=== PATIENT | male | born 1960 | race Caucasian/White ===

== ENCOUNTER 2017-12-23 12:07 | Observation (INO) | payer SELFPAY ==
[~2017-12-23] VITALS: Ht 172.7 cm; Wt 100.0 kg
[2017-12-23] VITALS (7 sets, daily range): BP systolic 97–154; BP diastolic 66–81; PULSE 69–85; RESP 18–24; TEMP 97.9–98.2; O2SAT 90–97
[2017-12-23] MEDS ORDERED: MOME16.7 INH (12:28)
[2017-12-23] MEDS ORDERED: VENTAER INH (12:28)
[2017-12-23] MEDS ORDERED: PRED20 PO (12:28)
[2017-12-23] MEDS ORDERED: methylPREDNISolone SOD SUCC 125 MG/2 ML VIAL IV PUSH ONE (12:30)
[2017-12-23] MEDS ORDERED: SODIUM CHLORIDE 0.9% FLUSH 10 ML FLUSH IVF PRN (12:30)
[2017-12-23] MEDS ORDERED: RESP: ALBUTEROL 2.5 MG/IPRATROPIUM 0.5 MG NEB (SCH) INH ONE (12:30)
[2017-12-23] MEDS: RESP: ALBUTEROL 2.5 MG/3 ML NEB (SCH) INH (12:35)
--- NOTE | 2017-12-23 12:38 | PD ---
HPI Chief Complaint: Chest Pain Time Seen by Provider: 12:24 Travel History International Travel<30 days: No Contact w/Intl Traveler<30days: No History of Present Illness HPI 57-year-old male with a history of "asthma", presents here today with complaints of chest tightness and shortness of breath. Patient states he has had this now for more than a week. He denies any fevers, chills. He does report cough with very little phlegm. He states he was seen by his primary doctor and told he had asthma. He was given a steroid inhaler as well as albuterol inhaler. He was also given prednisone taper. PFSH Past Medical History Asthma: Yes Diminished Hearing: No Past Surgical History Abdominal Surgery: Yes (HERNIA X2) Other Surgery: Yes (BACK SURGERY ) Social History Alcohol Use: Yes (RARE ) Tobacco Use: No Substance Use: No Allergies-Medications (Allergen,Severity, Reaction): Coded Allergies: penicillin G (Verified Allergy, Severe, Anaphylaxis, 12/23/17) Reported Meds & Prescriptions Reported Meds & Active Scripts Active Reported Ventolin Hfa 18 GM Inh (Albuterol Sulfate) 90 Mcg/Act Aer 2 Puff INH Q4-6H PRN Asmanex Hfa 13 GM Inh (Mometasone 13 GM Inh) 100 Mcg/Act Inh 2 Puff INH BID Prednisone 20 Mg Tab 20 Mg PO DAILY Review of Systems Except as stated in HPI: all other systems reviewed are Neg General / Constitutional: No: Fever HENT: No: Headaches, Vertigo, Neck Pain Cardiovascular: Positive: Chest Pain or Discomfort, No: Palpitations (Tightness ) Respiratory: Positive: Cough, Shortness of Breath, Wheezing Gastrointestinal: No: Nausea, Vomiting, Abdominal Pain Genitourinary: No: Dysuria, Decreased Urinary Output Musculoskeletal: No: Weakness, Pain Neurologic: No: Weakness, Dizziness, Headache Psychiatric: No: Substance Abuse Physical Exam Narrative GENERAL: Well-developed well-nourished male in moderate respiratory distress. SKIN: Focused skin assessment warm/dry. HEAD: Atraumatic. Normocephalic. EYES: Pupils equal and round. No scleral icterus. No injection or drainage. ENT: No nasal bleeding or discharge. Mucous membranes pink and moist. NECK: Trachea midline. Supple. CARDIOVASCULAR: Regular rate and rhythm. No murmur appreciated. RESPIRATORY: Decreased breath sounds in all 4 lung sarabia. Minimal wheezing secondary to the minimal movement of air. GASTROINTESTINAL: Abdomen soft, non-tender, nondistended. Hepatic and splenic margins not palpable. MUSCULOSKELETAL: No obvious deformities. No clubbing. No cyanosis. No edema. NEUROLOGICAL: Awake and alert. No obvious cranial nerve deficits. Motor grossly within normal limits. Normal speech. Data Data Last Documented VS Vital Signs Date Time Temp Pulse Resp B/P (MAP) Pulse Ox O2 Delivery O2 Flow Rate FiO2 12/23/17 12:22 80 24 136/81 (99) 92 Room Air 12/23/17 12:09 98.2 Orders Orders Electrocardiogram (12/23/17 ) Complete Blood Count With Diff (12/23/17 12:24) Comprehensive Metabolic Panel (12/23/17 12:24) Ckmb (Isoenzyme) Profile (12/23/17 12:24) Troponin I (12/23/17 12:24) Arterial Blood Gas (Abg) (12/23/17 12:24) Iv Access Insert/Monitor (12/23/17 12:24) Electrocardiogram (12/23/17 12:24) Ecg Monitoring (12/23/17 12:24) Oximetry (12/23/17 12:24) Oxygen Administration (12/23/17 12:24) Chest, Single Ap (12/23/17 12:24) Sodium Chloride 0.9% Flush (Ns Flush) (12/23/17 12:30) Methylprednisolone So Succ Inj (Solumedr (12/23/17 12:30) Albuterol-Ipratropium Neb (Duoneb Neb) (12/23/17 12:30) Albuterol Neb (Albuterol Neb) (12/23/17 12:30) Labs Laboratory Tests Test 12/23/17 12:18 Umesh Rizo MD Dec 23, 2017 12:37
--- NOTE | 2017-12-23 13:12 | RADRPT ---
EXAM DATE/TIME: 12/23/2017 12:31 [facility] COMPARISON: No previous studies available for comparison. INDICATIONS : Shortness of breath with chest pains. MEDICAL HISTORY : Myocardial infarction. SURGICAL HISTORY : None. ENCOUNTER: Initial ACUITY: 1 day PAIN SCORE: 6/10 LOCATION: Bilateral chest FINDINGS: A single view of the chest demonstrates the lungs to be symmetrically aerated without evidence of mas s, infiltrate or effusion. The cardiomediastinal contours are unremarkable. Osseous structures are intact. CONCLUSION: No acute disease. Jayant Katz MD on December 23, 2017 at 13:08 Board Certified Radiologist. This report was verified electronically.
[2017-12-23 13:21] LABS: BASOPHIL # 0.1 TH/MM3 (0-0.2); BASOPHIL % 0.9 % (0.0-2.0); EOSINOPHIL # 0.1 TH/MM3 (0-0.4); EOSINOPHIL % 1.5 % (0.0-4.0); HEMATOCRIT 44.6 % (39.0-51.0); HEMOGLOBIN 15.5 GM/DL (13.0-17.0); LYMPH % 33.5 % (9.0-44.0); MEAN CELL VOLUME 87.5 FL (80.0-100.0); MEAN CORPUSCULAR HEMOGLOBIN 30.3 PG (27.0-34.0); MEAN CORPUSCULAR HGB CONC 34.7 % (32.0-36.0); MEAN PLATELET VOLUME 7.8 FL (7.0-11.0); MONO % 8.6 % (0.0-8.0); MONOCYTE # 0.8 TH/MM3 (0-0.9); NEUT % 55.5 % (16.0-70.0); PLATELET COUNT 266 TH/MM3 (150-450); WHITE BLOOD COUNT 8.9 TH/MM3 (4.0-11.0)
[2017-12-23 13:42] LABS: ALBUMIN 4.1 GM/DL (3.4-5.0); ALT (GPT) 20 U/L (12-78); AST (GOT) 15 U/L (15-37); BICARBONATE 32.5 MEQ/L (21.0-32.0); BLOOD UREA NITROGEN 15 MG/DL (7-18); CALCIUM 8.7 MG/DL (8.5-10.1); CHLORIDE 102 MEQ/L (98-107); CREATININE 1.31 MG/DL (0.60-1.30); GLOMERULAR FILTRATION RATE 56 ML/MIN (>89); GLUCOSE,RANDOM 99 MG/DL (74-106); SODIUM (NA) 140 MEQ/L (136-145)
[2017-12-23 13:46] LABS: ALKALINE PHOSPHATASE 117 U/L (45-117); TOTAL BILIRUBIN ADULT 0.7 MG/DL (0.2-1.0); TOTAL PROTEIN 7.6 GM/DL (6.4-8.2); TROPONIN I LESS THAN 0.02 NG/ML (0.02-0.05)
[2017-12-23] MEDS ORDERED: RESP: ALBUTEROL 2.5 MG/3 ML NEB (PRN) INH (14:30)
[2017-12-23] MEDS ORDERED: SODIUM CHLORIDE 0.9% FLUSH 10 ML FLUSH IV FLUSH PRN (14:30)
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
[2017-12-23] MEDS ORDERED: LORATADINE 10 MG TAB PO ONE (15:00)
[2017-12-23] MEDS ORDERED: SODIUM CHLOR 0.9% 1000 ML INJ 1,000 ML IV SCH (16:30)
[2017-12-23] MEDS: HEPARIN SODIUM - SQ 10,000 UNITS/ML VIAL SQ SCH (16:39)
[2017-12-23] MEDS: methylPREDNISolone SOD SUCC 125 MG/2 ML VIAL IV PUSH SCH (16:43)
[2017-12-23] MEDS ORDERED: IOHEXOL 350 MG/ML 10 ML VIAL (for RAD DIAG) IVCONTRAST ONE (16:45)
--- NOTE | 2017-12-23 16:53 | RADRPT ---
EXAM DATE/TIME: 12/23/2017 16:21 [facility] COMPARISON: CHEST SINGLE AP, December 23, 2017, 12:31. INDICATIONS : Chest tightness and shortness of breath. IV CONTRAST: 73 cc Omnipaque 350 (iohexol) IV RADIATION DOSE: 14.53 CTDIvol (mGy) MEDICAL HISTORY : None SURGICAL HISTORY : Back surgery ENCOUNTER: Initial ACUITY: 1 day PAIN SCALE: 4/10 LOCATION: Bilateral chest TECHNIQUE: Volumetric scanning of the chest was performed using a pulmonary embolism protocol MIP images were re constructed. Using automated exposure control and adjustment of the mA and/or kV according to patien t size, radiation dose was kept as low as reasonably achievable to obtain optimal diagnostic quality images. DICOM format image data is available electronically for review and comparison. Follow-up recommendations for detected pulmonary nodules are based at a minimum on nodule size and pa tient risk factors according to Fleischner Society Guidelines. FINDINGS: PULMONARY ARTERIES: No filling defects are seen in the pulmonary arteries through the segmental level. LUNGS: There is no consolidation or pneumothorax . No concerning pulmonary nodule is visualized. PLEURAE: There is no pleural thickening or pleural effusion. MEDIASTINUM: There is good visualization of the great vessels of the middle mediastinum. No evidence of mediastin al or hilar adenopathy/mass. MUSCULOSKELETAL: Within normal limits for patient age. MISCELLANEOUS: The visualized upper abdominal organs demonstrate no acute abnormality. CONCLUSION: No evidence of pulmonary emboli. The lungs are clear. Jayant Ktaz MD on December 23, 2017 at 16:49 Board Certified Radiologist. This report was verified electronically.
[2017-12-23] MEDS: RESP: ALBUTEROL 2.5 MG/IPRATROPIUM 0.5 MG NEB (SCH) INH ×2 (16:54→20:50)
--- NOTE | 2017-12-23 20:39 | MB ---
cc: London Callahan MD DATE: 12/23/2017 REASON FOR CONSULTATION: Exacerbation of bronchial asthma. HISTORY OF PRESENT ILLNESS: The patient is a 57-year-old male with known history of bronchial asthma in the past. The patient is admitted with increasing shortness of breath, wheezing for over a week. No fever, no chill, cough without expectoration. No hemoptysis. No TB. No industrial exposure. PAST MEDICAL HISTORY: That of bronchial asthma, acid reflux disease. He did have a T and A as a child. MEDICATIONS: Upon presentation included prednisone 20 mg a day, Asmanex and Ventolin. ALLERGIES: PENICILLIN. SOCIAL HISTORY: Does not smoke. Drinks alcohol on rare occasion, does not use drugs. FAMILY HISTORY: Noncontributory. SYSTEMS REVIEW: A 12 point review of systems as per HPI and past history, otherwise negative. PHYSICAL EXAMINATION: GENERAL: The patient is alert. VITAL SIGNS: Temperature 98, pulse ____, respiration 18, blood pressure 140/80. HEENT: Unremarkable. Eyes without icterus. NECK: Without adenopathy, thyroid enlargement. Central trachea. CHEST: No dullness to percussion. Clear to auscultation. CARDIAC: PMI not appreciated. S1, S2 audible. No murmur, no rub. ABDOMEN: Lax, bowel sounds audible. EXTREMITIES: No clubbing, cyanosis or edema. LABORATORY DATA: Arterial blood gas pH 7.37, pCO2 of 49, pO2 59 on room air. White count 8.9, hemoglobin 15, hematocrit 44, platelets 266,000. Sodium 140, potassium 4.0, BUN 15, creatinine 1.3. CT angiogram no PE. Clear lung sarabia. IMPRESSION: 1. Asthma exacerbation. 2. Hypoxic respiratory failure. PLAN: The patient will be given oxygen therapy as needed. Bronchodilator therapy, steroid therapy. Follow closely. As oxygenation improves one may discontinue oxygen therapy and change to oral medication. Baseline pulmonary function will be obtained. I do thank you for asking me to partake in Mr. Ricardo's care. London Callahan MD WWW/rt , 08:14 PM , 08:38 PM
[2017-12-23] MEDS: SODIUM CHLORIDE 0.9% FLUSH 10 ML FLUSH IV FLUSH SCH (21:00)
[2017-12-23] MEDS: BUDESONIDE-FORMOTEROL 160/4.5 MCG INHALER INH SCH (21:00)
[2017-12-24] VITALS (12 sets, daily range): BP systolic 13–116; BP diastolic 52–69; PULSE 55–94; RESP 16–20; TEMP 98–98.8; O2SAT 90–95
[2017-12-24] MEDS: MONTELUKAST SODIUM 10 MG TAB PO SCH ×2 (00:32→22:51)
[2017-12-24] MEDS: methylPREDNISolone SOD SUCC 125 MG/2 ML VIAL IV PUSH SCH ×5 (00:33→22:51)
[2017-12-24] MEDS: HEPARIN SODIUM - SQ 10,000 UNITS/ML VIAL SQ SCH ×2 (03:00→15:47)
[2017-12-24] MEDS: RESP: ALBUTEROL 2.5 MG/IPRATROPIUM 0.5 MG NEB (SCH) INH ×4 (03:24→20:51)
[2017-12-24] MEDS: AZITHROMYCIN 250 MG TAB PO SCH (09:02)
[2017-12-24] MEDS: SODIUM CHLORIDE 0.9% FLUSH 10 ML FLUSH IV FLUSH SCH ×2 (09:03→22:51)
[2017-12-24] MEDS: LORATADINE 10 MG TAB PO SCH (09:03)
[2017-12-24] MEDS: BUDESONIDE-FORMOTEROL 160/4.5 MCG INHALER INH SCH ×2 (11:00→21:00)
--- NOTE | 2017-12-24 13:59 | EKG ---
Date Performed: 12/23/2017 Time Performed: 12:33:14 PTAGE: 57 years EKG: Sinus rhythm WITH SHORT [place] INTERVAL BORDERLINE ECG NO PREVIOUS TRACING DOCTOR: Tadeo Graham Interpretating Date/Time 12/24/2017 13:57:33
--- NOTE | 2017-12-24 19:29 | HHI.PR ---
Subjective Remarks Patient says he is feeling a little better today. Patient reports burning in his 'windpipe' worse when he breathes, reports this is the goal chest pain he was reporting yesterday. Objective Vital Signs Date Time Temp Pulse Resp B/P (MAP) Pulse Ox O2 Delivery O2 Flow Rate FiO2 12/24/17 17:16 98.4 87 20 116/64 (81) 94 12/24/17 16:40 77 12/24/17 13:00 94 12/24/17 12:44 3.00 12/24/17 12:35 98.2 87 20 116/62 (80) 91 12/24/17 08:44 92 Nasal Cannula 2.00 12/24/17 08:16 98.8 58 20 91/52 (65) 90 12/24/17 08:15 55 12/24/17 02:57 98.0 73 16 114/69 (84) 95 12/24/17 00:09 98.6 76 20 110/68 (82) 93 12/23/17 22:10 98.1 85 20 104/66 (79) 93 Result Diagram: 12/23/17 1256 12/23/17 1256 Objective Remarks GENERAL: patient sitting up in bed. Appears comfortable SKIN: Warm and dry. HEAD: Normocephalic. EYES: No scleral icterus. No injection or drainage. NECK: Supple, trachea midline. No JVD . CARDIOVASCULAR: Regular rate and rhythm without murmurs, gallops, or rubs. RESPIRATORY: Breath sounds equal bilaterally. No accessory muscle use. GASTROINTESTINAL: Abdomen soft, non-tender, nondistended. MUSCULOSKELETAL: No cyanosis, or edema. BACK: Nontender without obvious deformity. No CVA tenderness. A/P Assessment and Plan 57yo male admitted with chest pain and dyspnea: //Acute hypoxic respiratory failure //Asthma/COPD in acute exacerbation -patient given IV Solumedrol, nebulizer treatments in the ED with improvement -Continue on IV Solumedrol 60mg IV q6h -Begin Singulair 10mg daily and Claritin 10mg daily -Symbicort 160/4.5 mcg BID -Azithromycin 500mg po daily -Scheduled Duonebs and Albuterol neb prn -Consult Pulmonology, appreciate recommendations -Consult COPD educator -supplemental oxygen to maintain O2 sats >92% Patient has failed home oxygen evaluation, going into the 80s on room air with ambulation. Continue current treatment assess for improvement //Chest pain, atypical -CXR shows no acute cardiopulmonary process, images reviewed by me -initial troponin neg, continue to trend EKGs/serial cardiac enzymes -continuous cardiac monitoring -obtain CTA r/o PE = CTA negative for PE. //SHYANNE on ?CKD -creatinine 1.31/GFR 56, no labs for comparison -avoid nephrotoxic agents -obtain UA -IVF -monitor renal indices = Recheck labs tomorrow. //DVT prophylaxis -Heparin sq Discharge Planning discharge likely tomorrow when oxygenation improves. Master Talbot MD Dec 24, 2017 19:29
[2017-12-25] VITALS (7 sets, daily range): BP systolic 104–123; BP diastolic 64–70; PULSE 72–88; RESP 16–20; TEMP 98.2–98.4; O2SAT 92–97
[2017-12-25] MEDS: HEPARIN SODIUM - SQ 10,000 UNITS/ML VIAL SQ SCH ×2 (03:00→15:00)
[2017-12-25] MEDS: RESP: ALBUTEROL 2.5 MG/IPRATROPIUM 0.5 MG NEB (SCH) INH ×4 (03:40→20:37)
[2017-12-25] MEDS: methylPREDNISolone SOD SUCC 125 MG/2 ML VIAL IV PUSH SCH ×4 (04:32→23:40)
[2017-12-25] MEDS: BUDESONIDE-FORMOTEROL 160/4.5 MCG INHALER INH SCH ×2 (09:00→21:00)
--- NOTE | 2017-12-25 09:54 | HHI.PR ---
Subjective Remarks Patient says he is feeling all right. Says that shortness of breath has improved, but airway irritation continues. Objective Vital Signs Date Time Temp Pulse Resp B/P (MAP) Pulse Ox O2 Delivery O2 Flow Rate FiO2 12/25/17 07:50 98.2 76 20 115/65 (82) 94 12/25/17 03:31 98.2 88 16 104/67 (79) 95 12/24/17 23:23 98.3 85 20 107/62 (77) 93 12/24/17 20:40 94 Nasal Cannula 4.00 12/24/17 19:55 98.4 88 20 13/68 (50) 93 12/24/17 17:16 98.4 87 20 116/64 (81) 94 12/24/17 16:40 77 12/24/17 13:00 94 12/24/17 12:44 3.00 12/24/17 12:35 98.2 87 20 116/62 (80) 91 I/O 12/24/17 12/24/17 12/24/17 12/25/17 12/25/17 12/25/17 07:00 15:00 23:00 07:00 15:00 23:00 # Voids 4 Result Diagram: 12/23/17 1256 12/23/17 1256 Objective Remarks GENERAL: patient sitting up in bed. Appears comfortable, aaox4 SKIN: Warm and dry. HEAD: Normocephalic. EYES: No scleral icterus. No injection or drainage. NECK: Supple, trachea midline. No JVD . CARDIOVASCULAR: Regular rate and rhythm without murmurs, gallops, or rubs. RESPIRATORY: Breath sounds equal bilaterally. No accessory muscle use. GASTROINTESTINAL: Abdomen soft, non-tender, nondistended. MUSCULOSKELETAL: No cyanosis, or edema. BACK: Nontender without obvious deformity. No CVA tenderness. A/P Assessment and Plan 57yo male admitted with chest pain and dyspnea: //Acute hypoxic respiratory failure //Asthma/COPD in acute exacerbation -patient given IV Solumedrol, nebulizer treatments in the ED with improvement -Continue on IV Solumedrol 60mg IV q6h -Begin Singulair 10mg daily and Claritin 10mg daily -Symbicort 160/4.5 mcg BID -Azithromycin 500mg po daily -Scheduled Duonebs and Albuterol neb prn -Consult Pulmonology, appreciate recommendations -Consult COPD educator -supplemental oxygen to maintain O2 sats >92% Patient has failed home oxygen evaluation, going into the 80s on room air with ambulation. Continue current treatment assess for improvement = 12/25. Patient reports that he has an old oxygen machine at home but is not sure if it works. Will recheck ABG. Patient may need oxygen at home. //Constipation. No bowel movements here. Seen on CT scan from admission. //Suspected GERD. Likely exacerbated by constipation. Likely causing asthma exacerbation. Start Protonix. //Chest pain, atypical -CXR shows no acute cardiopulmonary process, images reviewed by me -initial troponin neg, continue to trend EKGs/serial cardiac enzymes -continuous cardiac monitoring -obtain CTA r/o PE = CTA negative for PE. //SHYANNE on ?CKD -creatinine 1.31/GFR 56, no labs for comparison -avoid nephrotoxic agents -obtain UA -IVF -monitor renal indices = A.m. labs pending. //DVT prophylaxis -Heparin sq Discharge Planning discharge when oxygenation improves. self pay. Difficult discharge. Master Talbot MD Dec 25, 2017 09:54
[2017-12-25] MEDS ORDERED: OXYGENDME NAS.CANULA (09:57)
[2017-12-25] MEDS ORDERED: MAGNESIUM HYDROXIDE SUSP 30 ML CUP PO ONE (10:00)
[2017-12-25] MEDS ORDERED: PANTOPRAZOLE SOD 40 MG DELAYED RELEASE TAB PO ONE (10:00)
[2017-12-25] MEDS ORDERED: DOCUSATE SODIUM 50 MG/SENNA 8.6 MG TAB PO ONE (10:00)
[2017-12-25] MEDS: LORATADINE 10 MG TAB PO SCH (10:10)
[2017-12-25] MEDS: AZITHROMYCIN 250 MG TAB PO SCH (10:10)
[2017-12-25] MEDS: SODIUM CHLORIDE 0.9% FLUSH 10 ML FLUSH IV FLUSH SCH ×2 (10:11→23:40)
[2017-12-25 22:03] LABS: AUTOMATED NEUTROPHIL # 14.1 TH/MM3 (1.8-7.7); BASOPHIL % 0.1 % (0.0-2.0); HEMATOCRIT 41.8 % (39.0-51.0); HEMOGLOBIN 14.1 GM/DL (13.0-17.0); LYMPH % 5.7 % (9.0-44.0); LYMPHOCYTE # 0.9 TH/MM3 (1.0-4.8); MEAN CELL VOLUME 88.7 FL (80.0-100.0); MEAN CORPUSCULAR HGB CONC 33.8 % (32.0-36.0); MEAN PLATELET VOLUME 7.8 FL (7.0-11.0); MONO % 4.3 % (0.0-8.0); MONOCYTE # 0.7 TH/MM3 (0-0.9); NEUT % 89.9 % (16.0-70.0); PLATELET COUNT 254 TH/MM3 (150-450); RED BLOOD COUNT 4.71 MIL/MM3 (4.50-5.90); RED CELL DISTRIBUTION WIDTH 12.9 % (11.6-17.2); WHITE BLOOD COUNT 15.7 TH/MM3 (4.0-11.0)
[2017-12-25 22:30] LABS: ALBUMIN 3.6 GM/DL (3.4-5.0); BICARBONATE 27.9 MEQ/L (21.0-32.0); CALCIUM 8.8 MG/DL (8.5-10.1); CREATININE 1.24 MG/DL (0.60-1.30); MAGNESIUM 2.2 MG/DL (1.5-2.5); PHOSPHORUS 2.4 MG/DL (2.5-4.9)
[2017-12-25] MEDS: MONTELUKAST SODIUM 10 MG TAB PO SCH (23:40)
[2017-12-26] MEDS: HEPARIN SODIUM - SQ 10,000 UNITS/ML VIAL SQ SCH ×2 (03:00→15:00)
[2017-12-26] MEDS: RESP: ALBUTEROL 2.5 MG/IPRATROPIUM 0.5 MG NEB (SCH) INH ×4 (03:35→20:29)
[2017-12-26] MEDS: methylPREDNISolone SOD SUCC 125 MG/2 ML VIAL IV PUSH SCH ×4 (04:11→20:49)
[2017-12-26 07:48] VITALS: BP 108/81; PULSE 66; RESP 16; TEMP 98.6; O2SAT 95
[2017-12-26] MEDS: BUDESONIDE-FORMOTEROL 160/4.5 MCG INHALER INH SCH ×4 (09:00→21:00)
[2017-12-26] MEDS: AZITHROMYCIN 250 MG TAB PO SCH (09:30)
[2017-12-26] MEDS: PANTOPRAZOLE SOD 40 MG DELAYED RELEASE TAB PO SCH (09:30)
[2017-12-26] MEDS: LORATADINE 10 MG TAB PO SCH (09:30)
[2017-12-26] MEDS: SODIUM CHLORIDE 0.9% FLUSH 10 ML FLUSH IV FLUSH SCH ×2 (09:33→20:51)
[2017-12-26 10:01] VITALS: BP 124/74; PULSE 86; RESP 16; TEMP 98.2; O2SAT 90
[2017-12-26 11:18] VITALS: O2SAT 97
--- NOTE | 2017-12-26 11:56 | HHI.PR ---
Subjective Remarks Patient continues to feel short of breath. He does report "burning in airways" . He reports that this is made worse with albuterol. He also reports "burning in airways" with activity. Objective Vital Signs Date Time Temp Pulse Resp B/P (MAP) Pulse Ox O2 Delivery O2 Flow Rate FiO2 12/26/17 11:18 97 Nasal Cannula 3.00 12/26/17 11:08 2.00 12/26/17 10:01 98.2 86 16 124/74 (91) 90 12/26/17 07:48 98.6 66 16 108/81 (90) 95 12/25/17 20:43 72 18 111/70 (84) 96 12/25/17 20:42 97 Nasal Cannula 3.00 12/25/17 16:08 98.4 86 18 123/64 (83) 92 12/25/17 13:14 98.4 74 20 121/66 (84) 93 Result Diagram: 12/25/17214712/25/172147 Objective Remarks GENERAL: patient sitting up in bed. Appears comfortable, aaox4 SKIN: Warm and dry. HEAD: Normocephalic. EYES: No scleral icterus. No injection or drainage. NECK: Supple, trachea midline. No JVD . CARDIOVASCULAR: Regular rate and rhythm without murmurs, gallops, or rubs. RESPIRATORY: Breath sounds equal bilaterally. No accessory muscle use. GASTROINTESTINAL: Abdomen soft, non-tender, nondistended. MUSCULOSKELETAL: No cyanosis, or edema. BACK: Nontender without obvious deformity. No CVA tenderness. A/P Assessment and Plan 57yo male admitted with chest pain and dyspnea: //Acute hypoxic respiratory failure //Asthma/COPD in acute exacerbation -patient given IV Solumedrol, nebulizer treatments in the ED with improvement -Continue on IV Solumedrol 60mg IV q6h -Begin Singulair 10mg daily and Claritin 10mg daily -Symbicort 160/4.5 mcg BID -Azithromycin 500mg po daily -Scheduled Duonebs and Albuterol neb prn -Consult Pulmonology, appreciate recommendations -Consult COPD educator -supplemental oxygen to maintain O2 sats >92% Patient has failed home oxygen evaluation, going into the 80s on room air with ambulation. Continue current treatment assess for improvement = 12/25. Patient reports that he has an old oxygen machine at home but is not sure if it works. Will recheck ABG. Patient may need walk test. At home. = 4/2. Check oxygen walk test. //Atypical chest pain. = 4/2. Continues with burning in airways. Poor R-wave progression on EKG. check echocardiogram. Check BNP //Constipation. No bowel movements here. Seen on CT scan from admission. //Suspected GERD. Likely exacerbated by constipation. Likely causing asthma exacerbation. Start Protonix. //Chest pain, atypical -CXR shows no acute cardiopulmonary process, images reviewed by me -initial troponin neg, continue to trend EKGs/serial cardiac enzymes -continuous cardiac monitoring -obtain CTA r/o PE = CTA negative for PE. //SHYANNE on ?CKD -creatinine 1.31/GFR 56, no labs for comparison -avoid nephrotoxic agents -obtain UA -IVF -monitor renal indices = A.m. labs pending. //DVT prophylaxis -Heparin sq Discharge Planning discharge when oxygenation improves. self pay. Difficult discharge. Master Talbot MD Dec 26, 2017 11:56
[2017-12-26] MEDS ORDERED: MAGNESIUM HYDROXIDE SUSP 30 ML CUP PO ONE (12:00)
[2017-12-26] MEDS ORDERED: DOCUSATE SODIUM 50 MG/SENNA 8.6 MG TAB PO ONE (12:00)
[2017-12-26 15:03] VITALS: BP 117/77; PULSE 78; RESP 16; TEMP 98.3; O2SAT 91
[2017-12-26 20:27] VITALS: BP 112/79; PULSE 80; RESP 18; O2SAT 92
[2017-12-26 20:31] VITALS: O2SAT 92
[2017-12-26] MEDS: DOCUSATE SODIUM 50 MG/SENNA 8.6 MG TAB PO SCH (20:49)
[2017-12-26] MEDS: MONTELUKAST SODIUM 10 MG TAB PO SCH (20:49)
[2017-12-27] MEDS: methylPREDNISolone SOD SUCC 125 MG/2 ML VIAL IV PUSH SCH ×3 (03:00→09:25)
[2017-12-27] MEDS: HEPARIN SODIUM - SQ 10,000 UNITS/ML VIAL SQ SCH (03:00)
[2017-12-27 03:34] VITALS: BP 119/76; PULSE 70; RESP 18; O2SAT 93
[2017-12-27] MEDS: RESP: ALBUTEROL 2.5 MG/IPRATROPIUM 0.5 MG NEB (SCH) INH ×2 (03:34→12:04)
[2017-12-27 07:31] VITALS: BP 135/84; PULSE 65; RESP 20; TEMP 98.8; O2SAT 95
[2017-12-27] MEDS: LORATADINE 10 MG TAB PO SCH (09:25)
[2017-12-27] MEDS: DOCUSATE SODIUM 50 MG/SENNA 8.6 MG TAB PO SCH (09:25)
[2017-12-27] MEDS: SODIUM CHLORIDE 0.9% FLUSH 10 ML FLUSH IV FLUSH SCH (09:26)
[2017-12-27] MEDS: AZITHROMYCIN 250 MG TAB PO SCH (09:26)
[2017-12-27] MEDS: PANTOPRAZOLE SOD 40 MG DELAYED RELEASE TAB PO SCH (09:26)
[2017-12-27 12:01] VITALS: BP 115/76; PULSE 72; RESP 20; TEMP 98.7; O2SAT 92
[2017-12-27 12:04] VITALS: O2SAT 92
[2017-12-27] MEDS ORDERED: IPRA17I INH (14:29)
[2017-12-27] MEDS ORDERED: PRED10PA2 PO (14:29)
[2017-12-27] MEDS ORDERED: AZIT250T3 PO (14:29)
[2017-12-27] MEDS ORDERED: Budeson-Formot 160-4.5 Mcg Inh INH (14:29)
[2017-12-27] MEDS ORDERED: MONT10TA4 PO (14:29)
[2017-12-27] MEDS ORDERED: CLAR10TA7 PO (14:29)
--- NOTE | 2017-12-27 14:37 | HHI.PR ---
Subjective Remarks Patient seen this morning. He says that shortness of breath has improved. Still burning when he breathes. Subsequently, patient refuses CT coronary angiogram. Does not want to wait for echocardiogram results. Objective Vital Signs Date Time Temp Pulse Resp B/P (MAP) Pulse Ox O2 Delivery O2 Flow Rate FiO2 12/27/17 12:04 92 Nasal Cannula 4.00 12/27/17 12:01 98.7 72 20 115/76 (89) 92 12/27/17 07:31 98.8 65 20 135/84 (101) 95 12/27/17 03:34 70 18 119/76 (90) 93 12/26/17 20:31 92 21 12/26/17 20:27 80 18 112/79 (90) 92 12/26/17 15:03 98.3 78 16 117/77 (90) 91 Result Diagram: 12/25/17214712/25/172147 Objective Remarks GENERAL: patient sitting up in bed. Appears comfortable, aaox4. No change on exam. Breathing comfortably. SKIN: Warm and dry. HEAD: Normocephalic. EYES: No scleral icterus. No injection or drainage. NECK: Supple, trachea midline. No JVD . CARDIOVASCULAR: Regular rate and rhythm without murmurs, gallops, or rubs. RESPIRATORY: Breath sounds equal bilaterally. No accessory muscle use. GASTROINTESTINAL: Abdomen soft, non-tender, nondistended. MUSCULOSKELETAL: No cyanosis, or edema. BACK: Nontender without obvious deformity. No CVA tenderness. A/P Assessment and Plan 57yo male admitted with chest pain and dyspnea: //Acute hypoxic respiratory failure //Asthma/COPD in acute exacerbation -patient given IV Solumedrol, nebulizer treatments in the ED with improvement -Continue on IV Solumedrol 60mg IV q6h -Begin Singulair 10mg daily and Claritin 10mg daily -Symbicort 160/4.5 mcg BID -Azithromycin 500mg po daily -Scheduled Duonebs and Albuterol neb prn -Consult Pulmonology, appreciate recommendations -Consult COPD educator -supplemental oxygen to maintain O2 sats >92% Patient has failed home oxygen evaluation, going into the 80s on room air with ambulation. Continue current treatment assess for improvement = 12/25. Patient reports that he has an old oxygen machine at home but is not sure if it works. Will recheck ABG. Patient may need walk test. At home. = 4/2. Check oxygen walk test. = /. Discharge with oxygen prescription. //Atypical chest pain. = /2. Continues with burning in airways. Poor R-wave progression on EKG. check echocardiogram. Check BNP //Constipation. Resolved after laxatives //Suspected GERD. Likely exacerbated by constipation. Likely causing asthma exacerbation. Start Protonix. //Chest pain, atypical -CXR shows no acute cardiopulmonary process, images reviewed by me -initial troponin neg, continue to trend EKGs/serial cardiac enzymes -continuous cardiac monitoring -obtain CTA r/o PE = CTA negative for PE. = Patient refuses CT coronary angiogram. Patient does not want to wait for echocardiogram to result. //SHYANNE on ?CKD -creatinine 1.31/GFR 56, no labs for comparison -avoid nephrotoxic agents -obtain UA -IVF -monitor renal indices = Improved. //Leukocytosis 15. Secondary to IV steroids. //DVT prophylaxis -Heparin sq Discharge Planning Patient refuses CT coronary angiogram.. Is not wanting to wait for echo results. Discharge home with oxygen prescription. Follow-up primary care and pulmonology as outpatient. Master Talbot MD Dec 27, 2017 14:37
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
--- NOTE | 2017-12-27 18:11 | ECHRPT ---
Indication: HEART FAILURE CONCLUSIONS The left ventricular systolic function is low normal with an estimated ejection fraction in the rang e of 50- 55%. There is global left ventricular dysfunction. There is trace tricuspid valve regurgitation. BP: 117 / 77 HR: 78 Rhythm: Sinus MEASUREMENTS (Male / Female) Normal Values Technical Quality:Fair 2D ECHO LV Diastolic Diameter PLAX 4.6 cm 4.2 - 5.9 / 3.9 - 5.3 cm LV Systolic Diameter PLAX 3.7 cm IVS Diastolic Thickness 0.9 cm 0.6 - 1.0 / 0.6 - 0.9 cm LVPW Diastolic Thickness 0.9 cm 0.6 - 1.0 / 0.6 - 0.9 cm LV Relative Wall Thickness 0.4 RV Internal Dim ED PLAX 2.4 cm LVOT Diameter 2.3 cm Aortic Root Diameter 3.4 cm LA Systolic Diameter LX 2.7 cm 3.0 - 4.0 / 2.7 - 3.8 cm M-MODE AV Cusp Separation MM 2.1 cm DOPPLER AV Peak Velocity 97.9 cm/s AV Peak Gradient 3.8 mmHg AV Mean Gradient 2.0 mmHg AV Velocity Time Integral 17.2 cm LVOT Peak Velocity 66.2 cm/s LVOT Peak Gradient 1.8 mmHg LVOT Velocity Time Integral 9.5 cm AV Area Cont Eq vti 2.3 cm AV Area Cont Eq pk 2.8 cm Mitral E Point Velocity 78.3 cm/s LV E' Lateral Velocity 10.9 cm/s Mitral E to LV E' Lateral Ratio 7.1 LV E' Septal Velocity 8.7 cm/s Mitral E to LV E' Septal Ratio 9.0 TR Peak Velocity 259.0 cm/s TR Peak Gradient 26.8 mmHg Right Atrial Pressure 10.0 mmHg Pulmonary Artery Systolic Pressu 36.8 mmHg Right Ventricular Systolic Press 36.8 mmHg PV Peak Velocity 69.9 cm/s PV Peak Gradient 2.0 mmHg FINDINGS LEFT VENTRICLE Normal left ventricular size. Wall thickness is normal. The left ventricular systolic function is low normal with an estimated ejection fraction in the rang e of 50- 55%. There is global left ventricular dysfunction. RIGHT VENTRICLE The right ventricle was not well visualized. The right ventricular systoilc function is mildly decreased. LEFT ATRIUM The left atrial size is mildly dilated. RIGHT ATRIUM The right atrial size is [id number] dilated. ATRIAL SEPTUM No atrial level shunt is demonstrated by color flow Doppler interrogation. AORTA The aortic root and proximal ascending aorta are not well visualized. MITRAL VALVE Structurally normal mitral valve. No mitral valve stenosis or regurgitation. AORTIC VALVE Trileaflet aortic valve. No aortic valve stenosis or regurgitation. TRICUSPID VALVE Structurally normal tricuspid valve There is trace tricuspid valve regurgitation. The estimated pulmonary arterial pressure is 36.8 mmHg. PULMONARY VALVE The pulmonary valve is not well visualized. VESSELS The inferior vena cava is normal in size. PERICARDIUM No pericardial effusion. Mahamed Berry DO (Electronically Signed) Final Date:27 December 2017 18:10
--- NOTE | 2017-12-28 14:06 | RSPPFT ---
DATE OF PROCEDURE: 12/25/17 COMMENTS: Spirometry with FVC of 1.6, FEV1 of 3.2, FEV1/FVC ratio at 80%. Post-bronchodilator study was not performed. IMPRESSION:
== END 2017-12-27 16:17 | disposition home or self-care (01) ==
LOC: NEPE 12:07 → NEDA 14:31 → NEPGCP 16:21
PROVIDERS: ADMIT Internal Medicine; ATTEND Internal Medicine
DX: J96.01 Acute respiratory failure with hypoxia (principal); J44.1 Chronic obstructive pulmonary disease with (acute) exacerbation; R07.89 Other chest pain; J45.901 Unspecified asthma with (acute) exacerbation; N17.9 Acute kidney failure, unspecified; K21.9 Gastro-esophageal reflux disease without esophagitis; R53.1 Weakness; K44.9 Diaphragmatic hernia without obstruction or gangrene; K59.00 Constipation, unspecified; R06.02 Shortness of breath; Z87.891 Personal history of nicotine dependence
CPT/HCPCS: 36600; 71045; 71275; 80053; 80069; 82550; 82805; 83735; 83880; 84484; 85025; 93005; 93306; 94010; 94618; 94640; 94664; 96361; 96374; 96376; 99285; G0378; J2930; J7030; J7613; Q9967